=== PATIENT | female | born 1965 | race Caucasian/White ===

== ENCOUNTER 2019-05-31 16:21 | Inpatient (IN) | payer OTHER ==
[~2019-05-31] VITALS: Ht 149.8 cm; Wt 173.9 kg
--- NOTE | ~2019-05-31 | WRIGHTHP ---
[place], [place] PATIENT HISTORY AND PHYSICAL EXAM NAME: ISAK BERGER UNIT #: [id number] ROOM: 309 DOCTOR: KE DURAN MD BIRTHDATE: [birth year] DOS: 06/02/2019 CHIEF COMPLAINT: "I have just been so depressed and anxious." HISTORY OF PRESENT ILLNESS: This is a 53-year-old white female known to me from her stay at the [facility]. The patient presents now increasingly depressed and anxious. The patient has been calling 911 because her anxiety is so great and she is having chest pain and she feels that she needs to be taken care of. She also endorses significant depression with poor sleep and appetite, anergia, anhedonia, hopeless, helpless feelings, crying spells, and inability to cope. The patient has battled depression since her 20s and has had multiple psychiatric admissions during her lifetime. She is admitted now to rule out organic factors and to attempt to stabilize on medication while engaging in individual and mac milieu activities. PAST MEDICAL HISTORY: Remarkable for anemia, respiratory failure, COPD, chronic kidney disease stage 3, generalized anxiety disorder, GI bleed, lymphedema, major depression, morbid obesity, pulmonary fibrosis. SOCIAL HISTORY: The patient does not smoke cigarettes or drink alcohol. She has a questionable use of pain meds and benzos. ALLERGIES: LISTED TO NSAIDS AND SULFA. STRENGTHS: Ambulatory, good verbal skills. WEAKNESSES: Chronic severe mental health issues and poor coping skills. MENTAL STATUS: The patient is alert and oriented. Mood does seem to be overwhelmingly depressed with anxious overtones. She endorses significant symptoms suggestive of panic disorder. There is no jason or hypomania. There is no gross psychosis. No delusions, no paranoia. Memory is intact. DIAGNOSES: Major depression, recurrent, severe and anxiety disorder, not otherwise specified. PLAN: Routine screening examinations revealed her to have a low vitamin D level of 25.3. I will increase her vitamin D from 2000 international units daily to 5000 international units daily. I will also start her on a vitamin B12 injection of 1000 mcg monthly, increase her Klonopin to 1 mg t.i.d. and start her on Remeron 15 mg at bedtime while engaging in individual and mac milieu activity with the plan to return to the least restrictive environment when psychiatrically stable. [place], [place] PATIENT HISTORY AND PHYSICAL EXAM NAME: ISAK BERGER UNIT #: [id number] ROOM: 309 DOCTOR: KE DURAN MD BIRTHDATE: [birth year] KE DURAN MD CM:HISPHYS:PATIENT HISTORY AND PHYSICAL EXAMINATION 7 7 KE DURAN MD 06/02/19947 interface
--- NOTE | ~2019-05-31 | DS ---
[place], [place] DISCHARGE SUMMARY [id number] UN[facility] #: [id number] ROOM: 309 DOCTOR: KE DURAN MD BIRTHDATE: [birth year] DOS: 06/10/2019 CHIEF COMPLAINT: "I am so ready to go, thank you so much. At admission, I have just been so depressed and anxious." HISTORY OF PRESENT ILLNESS: This is a 53-year-old white female known to me from the [facility]. The patient presents now to the [facility] at [facility] with increasing depression and anxiety. The patient has been repeatedly calling 911 because her anxiety is so great and she is having chest pains and feels she needs to be taken to the Emergency Room. She is fearful of and has a sense of impending doom. She also endorses significant depressive symptoms that include poor sleep with difficulty falling asleep, sleep continuity disturbance, elementary secretary awakening. She also notes fluctuations in her appetite level, anergia, anhedonia, hopeless, helpless feelings, crying spells, and inability to cope. The patient reports having battled depression since her early 20s and has had multiple psychiatric admissions during her lifetime. She is admitted now to rule out any organic factors to attempt to re-stabilize on medication, to engage in individual and mac milieu activities and then to determine the least restrictive environment to which she could be returned. SUMMARY OF THE HOSPITAL COURSE: The patient was admitted to the [facility] where routine screening examinations were performed, one of which was a vitamin D level that was low at 25.3. Her vitamin D dosing was increased from 2000 international units daily to 5000 international units daily. The patient's B12 level was low normal, so a vitamin B12 injection of 1000 mcg monthly was started. The patient's Klonopin was increased upon admission to 1 mg t.i.d. and subsequently toward the latter part of her stay to 1 mg q.i.d. with excellent results. The patient had her antidepressants switched to Remeron 15 mg at bedtime, which dramatically improved sleep and appetite. With these changes in medication and with mac activities that focused on positive coping skills, the patient improved greatly. Sleep and appetite normalized. She was able to assist in ADLs. She voiced positive plans for the future and was looking to return back to the [facility]. She convincingly denied suicidal thoughts, homicidal thoughts and self-injurious thoughts and also convincingly denied medication side effects. The patient was discharged then back to the [facility]. MENTAL STATUS AT DISCHARGE: She is alert and oriented to person, place, and time. Mood is much more euthymic and bright. She is smiling readily. She is spontaneous and is able to answer questions appropriately. There were no symptoms of depression noted, no neurovegetative symptoms were present. There are also no suicidal thoughts, homicidal thoughts, or self-injurious thoughts. No hypomania or jason. No gross psychotic symptoms. No auditory or visual hallucinations were noted. No paranoia. Memory for the most part was intact. FINAL DIAGNOSES: Major depression, recurrent, severe; anxiety disorder, not otherwise specified and personality disorder, not otherwise specified. DISPOSITION: The patient is returning to the [facility]. All of her [place], [place] DISCHARGE SUMMARY NAME: SIAK BERGER UNIT #: [id number] ROOM: 309 DOCTOR: KE DURAN MD BIRTHDATE: [birth year] prescriptions have been printed and will be sent with her. At the time of discharge, she was medically and psychiatrically stable. I will be the treating psychiatrist of record upon her readmission to the [facility]. KE DURAN MD CM:DISCHARG [id number] KE DURAN MD 06/10/19 1826 interface
--- NOTE | ~2019-05-31 | PR ---
[place], [place] PROGRESS NOTE NAME: ISAK BERGER UNIT #: [id number] ROOM: 309 DOCTOR: KE DURAN MD BIRTHDATE: [birth year] DOS: 06/08/2019 INTERVAL NOTE CHIEF COMPLAINT: "I am feeling a little better, but my anxiety is still there." SUMMARY OF THE VISIT: The patient was interviewed as she was resting quietly in bed, eating her breakfast. She reported to me that she had a good weekend and overall was feeling better than when she was first admitted. She does note that her depression has lessened. Sleep and appetite have normalized. She still is fixated on her anxiety level being present throughout the day and that the anxiety comes and goes at will without necessarily having a precipitating factor. She convincingly denies medication side effects and no sedation, somnolence are noted. MENTAL STATUS: She is alert and oriented with some time gaps. Mood does seem to be trending solidly towards euthymia. Affect is much more appropriate. There are still symptoms suggestive of overriding anxiety. There is no jason or hypomania and there are no gross psychotic symptoms. PLAN: I will maintain her current dose of the Remeron. I will increase her Klonopin from 1 mg t.i.d. to 1 mg q.i.d. as I attempt to eradicate the remainder of her anxiety. We will continue to engage her in individual and mac milieu activity, returning to the least restrictive environment when psychiatrically stable. KE DURAN MD CM:PNTRANS [id number] KE DURAN MD 06/09/19 0540 interface
--- NOTE | ~2019-05-31 | PR ---
[place], [place] PROGRESS NOTE NAME: ISAK BERGER UNIT #: [id number] ROOM: 309 DOCTOR: TROY COLEMAN CNP BIRTHDATE: [birth year] DOS: 06/06/2019 CHIEF COMPLAINT: "They took my cell phone." SUMMARY OF THE VISIT: The patient was interviewed as she sat eating her breakfast in the dining room. The patient engaged readily in conversation with me. The patient reports that the staff will not took her cell phone and will not allow her to have it. I explained that these are the rules for the unit; however, she will receive her cell phone upon discharge. The patient was happy with that. The patient reports that she did sleep well last night and that her appetite has been good. She denies any anxiety or depression. Staff reports that the patient has been compliant with medication taking it as directed. She does continue to be demanding at times and has to be encouraged to get out of bed and to participate in activities. MENTAL STATUS EXAMINATION: The patient is alert and oriented to person, place and time. She was pleasant and cooperative with me. No overt jason or hypomania noted. No delusions or paranoia noted. No psychotic symptoms noted. No auditory or visual hallucinations noted. The patient's mood was calm. No depression or anxiety. Affect is congruent with mood. PLAN: I will continue the patient's medication as prescribed. She appears to be tolerating medications without side effects. The patient's gabapentin level is still pending. Encourage the patient to engage in mac milieu activity. Continue fall and safety precautions. Plan is to return the patient to the least restrictive environment when she is considered psychiatrically stable. Troy Coleman CNP CM:PNTRANS [id number] TROY COLEMAN CNP 06/06/19 1637 interface
--- NOTE | ~2019-05-31 | PR ---
[place], [place] PROGRESS NOTE NAME: ISAK BERGER UNIT #: [id number] ROOM: 309 DOCTOR: KE DURAN MD BIRTHDATE: [birth year] DOS: 06/03/2019 INTERVAL NOTE CHIEF COMPLAINT: "I think I'm feeling a little better, thank you for asking." SUMMARY OF THE VISIT: The patient was interviewed as she was sitting in the dining room finishing her breakfast. She engaged readily in conversation and reports that she is sleeping better, eating better, and overall is beginning to feel much better with the current medication regimen. She convincingly denies any side effects and does not note any sedation, somnolence, or any other side effects. She is willing to allow me to adjust her medication regimen accordingly. MENTAL STATUS: She is alert and oriented to person, place and time. Mood does still seem to be somewhat depressed, but improving. Affect shows some anxious overtones, but otherwise is appropriate for content. There is no jason, hypomania or gross psychotic symptomatology. Short, intermediate, and long-term memory are intact. PLAN: I will go ahead and increase her Remeron dose from 15 mg at bedtime to 22.5 mg at bedtime, hoping to maximize potential benefits. We will continue to engage in individual and mac milieu activity, returning to the least restrictive environment when psychiatrically stable. KE DURAN MD CM:PNTRANS [id number] KE DURAN MD 06/03/19 0936 interface
--- NOTE | ~2019-05-31 | PR ---
[place], [place] PROGRESS NOTE NAME: ISAK BERGER UNIT #: [id number] ROOM: 309 DOCTOR: TROY COLEMAN CNP BIRTHDATE: [birth year] DOS: 06/07/2019 CHIEF COMPLAINT: "I am doing well." SUMMARY OF VISIT: The patient was interviewed as she sat in the dining room. The patient engaged readily in conversation with me. She reports that she has been sleeping well. She reports that her appetite has been good. She reports that her mood has been happy. She denies feeling anxious or agitated. Staff reports that the patient has been compliant with medications. She slept 7-8 hours last night. She has been pleasant for the most part; however, can continue to be demanding at times. MENTAL STATUS EXAMINATION: The patient is alert and oriented to person, place and time. She was pleasant and cooperative with me. No jason or hypomania noted. No delusions or paranoia noted. No psychotic symptoms noted. No auditory or visual hallucinations noted. Mood was calm, trending toward euthymia. Affect was appropriate. PLAN: I will continue the patient's medications as prescribed as she appears to be tolerating them well without any type of side effect. Medication appears to be effective. We will continue to encourage the patient to engage in individual and mac milieu activity. Continue fall and safety precautions. Plan is to return the patient to the least restrictive environment when she is considered psychiatrically stable. Troy Coleman CNP CM:PNTRANS [id number] TROY COLEMAN CNP 06/07/19 1335 interface
--- NOTE | ~2019-05-31 | PR ---
[place], [place] PROGRESS NOTE NAME: ISAK BERGER UNIT #: [id number] ROOM: 309 DOCTOR: KE DURAN MD BIRTHDATE: [birth year] DOS: 06/04/2019 CHIEF COMPLAINT: "I feel a little better, but I'm still down." SUMMARY OF HOSPITAL COURSE: The patient was interviewed in the dining area. She was engaging in conversation with a female peer, but stopped and engaged in conversation with me. She reports that overall she feels that she is improving day by day. Her sleep is good. Her appetite is good. She still complains of pain issues. She still has some anxiety issues, but feels that the Klonopin is beginning to take hold. MENTAL STATUS: She is alert and oriented with some time gaps. Mood does seem to be strongly trending towards euthymia. Affect is much more appropriate. There is no hypomania or jason. There are no gross psychotic symptoms. Short, intermediate and long-term memories for the most part are intact. PLAN: I will continue her current psychotropic regimen. I will go ahead and check a Neurontin level in the a.m. I will continue to engage in individual and mac milieu activity, returning to the least restrictive environment when psychiatrically stable. KE DURAN MD CM:PNTRANS [id number] KE DURAN MD 06/05/19 0012 interface
--- NOTE | ~2019-05-31 | PR ---
[place], [place] PROGRESS NOTE NAME: ISAK BERGER UNIT #: [id number] ROOM: 309 DOCTOR: KE DURAN MD BIRTHDATE: [birth year] DOS: 06/05/2019 INTERVAL NOTE CHIEF COMPLAINT: "I think I am feeling better, thank you." SUMMARY OF THE VISIT: The patient was interviewed as she was finishing her breakfast in the dining room. She stopped and engaged readily in conversation, reporting improved sleep, improved appetite and also stating that she does feel better since she came in. She convincingly denies any medication side effects and none are noted. MENTAL STATUS: She is alert and oriented to person, place, not totally to time, but very approximate. Mood is strongly trending towards euthymia. Affect is much more appropriate. There is no hypomania, jason or psychosis. Short-term memory, intermediate memory and long-term memory for the most part are intact. PLAN: Gabapentin level is pending. I will adjust accordingly. Otherwise, I will maintain her current psychotropic regimen, continue to engage in individual and mac milieu activity, returning to the least restrictive environment when psychiatrically stable. KE DURAN MD CM:PNTRANS [id number] KE DURAN MD 06/05/19 1341 interface
[2019-05-31] MEDS ORDERED: BREO ELLIPTA 11 EACH INH (16:36)
[2019-05-31] MEDS ORDERED: VITAMIN D31000 UNI1 PO (16:36)
[2019-05-31] MEDS ORDERED: FERROUS SULFAT325 MG PO (16:37)
[2019-05-31] MEDS ORDERED: FLUVOXAMINE100 MG PO ×2 (16:38→16:39)
[2019-05-31] MEDS ORDERED: FLUVOXAMINE50 MG PO (16:39)
[2019-05-31] MEDS ORDERED: KLONOPIN1 M1 PO (16:40)
[2019-05-31] MEDS ORDERED: CLARITIN10 MG PO (16:41)
[2019-05-31] MEDS ORDERED: OXYBUTYNIN ER15 MG PO (16:42)
[2019-05-31] MEDS ORDERED: TESSALON PERLE100 MG PO (16:43)
[2019-05-31] MEDS ORDERED: KLONOPIN0.5 MG PO (16:44)
[2019-05-31] MEDS ORDERED: LOPRESSOR25 MG PO (16:45)
[2019-05-31] MEDS ORDERED: TYLENOL325 M1 PO (16:46)
[2019-05-31] MEDS ORDERED: NEURONTIN100 MG PO (16:46)
[2019-05-31] MEDS ORDERED: HYDROXYZINE HCL50 MG PO (16:47)
[2019-05-31] MEDS ORDERED: VENTOLIN 02.5 MG/3 M INH (16:48)
[2019-05-31] MEDS ORDERED: DICYCLOMINE HCL20 MG PO (16:48)
[2019-05-31] MEDS ORDERED: ROBITUSSIN5 ML PO (16:49)
[2019-05-31] MEDS ORDERED: MELATONIN5 M1 PO (16:50)
[2019-05-31] MEDS ORDERED: IMODIUM A-D2 M2 PO (16:50)
[2019-05-31] MEDS ORDERED: ZOFRAN4 MG PO (16:53)
[2019-05-31] MEDS ORDERED: TUMS200 MG PO (16:53)
--- NOTE | 2019-06-01 17:17 | NUR ---
NOTIFIED OF CONSULT FOR MEDICAL MANAGEMENT.
--- NOTE | 2019-06-01 17:25 | NUR ---
ON UNIT TO SEE PT AT THIS TIME.
--- NOTE | 2019-06-01 17:34 | NUR ---
DR MARTINEZ ON UNIT TO ASSESS PT
[2019-06-01 17:55] LABS: BASO % 0.5 % (0.0-1.0); EOS # 0.3 10*3/uL (0.0-0.4); EOS % 4.3 % (1.0-4.0); HEMATOCRIT 39.9 % (37.0-47.0); LYMPH # 1.1 10*3/uL (1.3-4.4); LYMPH % 18.8 % (27.0-41.0); MEAN CELL VOLUME 88.1 fl (81.0-99.0); MEAN CORPUSCULAR HGB 28.7 pg (27.0-31.0); MEAN CORPUSCULAR HGB CONC 32.6 g/dl (33.0-37.0); MEAN PLATELET VOLUME 9.2 fl (9.6-12.3); MONO # 0.3 10*3/uL (0.1-1.0); MONO % 5.5 % (3.0-9.0); NEUT # 4.2 10*3/uL (2.3-7.9); NEUT % 70.6 % (47.0-73.0); PLATELET COUNT AUTOMATED 153 10*3/uL (130-400); RED BLOOD COUNT 4.53 10*6/uL (4.10-5.10); RED CELL DISTRI WIDTH 13.7 % (0-14.5)
[2019-06-01 18:24] LABS: ALBUMIN 3.2 gm/dl (3.1-4.5); ALKALINE PHOSPHATASE 151 U/L (45-117); BUN 13 mg/dl (7-24); CHLORIDE 103 mmol/L (98-107); CREATININE 0.95 mg/dL (0.55-1.02); POTASSIUM 4.2 mmol/L (3.5-5.1); SGOT/AST 18 IU/L (3-35); SGPT/ALT 18 U/L (12-78); SODIUM 141 mmol/L (136-145); TOTAL PROTEIN 7.4 gm/dL (6.4-8.2)
[2019-06-01 18:41] VITALS: BP 121/45
[2019-06-01 18:45] LABS: VITAMIN D, 25-HYDROXY 25.3 ng/mL (30-100)
--- NOTE | 2019-06-01 19:44 | NUR ---
ISAK BERGER a 53 year old F admitted via wheel chair from the ADMITTING as a voluntary admission. Arrived on unit at 1615. ALLERGIES: SULFA, ASA. Vital signs are: 97.3-68-20 . The client signed the following forms with stated understanding: Authorization For The Release of Medical Information, Clothing List, Consent to Voluntary Admission and Hospitalization, Consent and Release Forms/Receipt of Rights, Acknowledgement of Advance Directive Information, Behavioral Health Consent Form, and Informed Consent of Medications. Admitted under the services of Dr. ROGER SEALSKE. A search was conducted and hazardous articles were removed. Client was oriented to the unit. RAFAEL WILSON
--- NOTE | 2019-06-01 19:46 | NUR ---
PT COOPERATIVE WITH ADMISSION ASSESSMENT. 7 WOUNDS NOTED WITH MULTIPLE BRUISING. A&O X4. STABLE MOOD. PT STATES SHE HAS BEEN DEPRESSED RECENTLY AND HAS INCREASED ANXIETY. CALM. INTERACTIVE. COOPERATIVE. BP 121/45. DR CHANG UPDATED ON BP AND STATED HE WOULD BE AROUND TO TALK TO THE PT. PT STATED THE REASONS SHE WAS SENT TO THE [facility] WAS CORRECT. ADMITTED TO CALLING THE POLICE AND THROWING HER FOOD TRAYS. PT STATED THE [facility] WAS NOT TAKING HER TO THE BATHROOM WHEN SHE NEEDED TO GO WHICH IS THE REASON SHE URINATED ON THE FLOOR. SHIFT DIRECTOR ON UNIT TO ASSESS THE WOUND. DIRECTOR STATED IT WAS A STAGE 2.
[2019-06-01 20:00] VITALS: BP 127/50
--- NOTE | 2019-06-01 20:11 | NUR ---
ON UNIT, UPDATED ON PATIENTS RECENT BP OF 127/50 AUTOMATIC, PT ASYMPTOMATIC. ALSO UPDATED ON PATIENTS WOUNDS, LABS, AND PMH. RECIEVED ORDER FOR NYSTATIN POWER FOR ABDOMINAL FOLDS Q8H PRN. STATED IF PATIENT IS WILLING TO RECHECK BP IN A COUPLE HOURS AND TO ENCOURAGE FLUID INTAKE. NO OTHER ORDERS RECIEVED.
--- NOTE | 2019-06-01 20:42 | NUR ---
EVENING/AROMATHERAPY/RELAXTION SKILLS PT UNABLE TO ATTEND, PT STILL BECOMING ORIENTED TO UNIT. PT ASSESSMENT WILL BE COMPLETED TOMORROW AND PT WILL BE ENCOURAGED OT ATTEND AND PARTICIPATE IN FUTURE GROUP SESSIONS.
[2019-06-01 23:17] VITALS: BP 110/62
--- NOTE | 2019-06-01 23:17 | NUR ---
UPDATED ON PATIENTS RECENT BP OF 110/62 MANUAL AND THAT THIS NURSE DID NOT YET GIVE HS DOSE OF LOPRESSOR 25MG DUE TO LOW BP, PT ASYMPTOMATIC. STATED IT WAS OKAY TO HOLD MEDICATION AT THIS TIME. NO OTHER ORDERS RECIEVED.
--- NOTE | 2019-06-02 01:07 | NUR ---
NO ADVERSE BEHAVIORS NOTED SO FAR THIS SHIFT. PT ALERT AND ORIENTED X4, MOOD STABLE. PT CALM, COOPERATIVE, AND INTERACTIVE. MEDICATION COMPLIANT WITHOUT DIFFICULTY, ACTIVELY PARTICIPATED IN MEDICATION EDUCATION.PT DENIES SI/HI AND HALLUCINATIONS, NO NOTED RESPONDING TO INTERNAL STIMULI. NO PARANOIA/DELUSIONS OBSERVED. NO PHYSICAL COMPLAINTS VOICED. PT INCONTINENT OF BOWEL AND BLADDER, X3 ASSIST WITH CARE. PT NONAMBULATORY, Q2H TURNS MAINTAINED. PT CURRENTLY LAYING DOWN WITH EYES CLOSED, RESPIRATIONS EASY AND REGULAR, NO SIGNS OR SYMPTOMS OF DISTRESS NOTED. PLAN IS TO CONTINUE TO MONITOR MOOD AND BEHAVIORS. PROVIDE 1:1 WITH EMOTIONAL SUPPORT NEEDED. ENCOURAGE MEDICATION COMPLIANCE AND EDUCATE. MAINTAIN Q 15 MIN CHECKS.
--- NOTE | 2019-06-02 04:10 | NUR ---
ISAK BERGER [id number] Please refer to the physician's history and physical for past medical history, comorbid conditions, and allergies. Diagnosis: MAJOR DEPRESSION RECURRENT SEVERE Gordo Score: 11,HIGH RISK WOUND DESCRIPTIONS: Wound Number: 1 Location of the wound: left upper back Type of wound: fungal Thickness: Partial Size: 0.4cm x 6.5cm x 0.1cm Tunneling: none Undermining: none Sinus Tract: none Presence of Exudate: Serosanguineous Amount: Light Color: Red Odor: Musty Periwound Skin Appearance: Normal Wound edges: approximated Pain (associated with wound): none at time of assessment How does patient state this happened? pt unsure how she got these areas Wound Number: 2 Location of the wound: left middle back- medial Type of wound: fungal Thickness: Partial Size: 2.0cm x 2.9cm x 0.1cm Tunneling: none Undermining: none Sinus Tract: none Presence of Exudate: none Amount: none Color: Red Odor: Musty Periwound Skin Appearance: Normal Wound edges: approximated Pain (associated with wound): none at time of assessment How does patient state this happened? pt unsure how she got these areas Wound Number: 3 Location of the wound: left middle back- lateral Type of wound: fungal Thickness: Partial Size: 0.1cm x 0.7cm x 0.1cm Tunneling: none Undermining: none Sinus Tract: none Presence of Exudate: none Amount: none Color: Red Odor: Musty Periwound Skin Appearance: Normal Wound edges: approximated Pain (associated with wound): none at time of assessment How does patient state this happened? pt unsure how she got these areas Wound Number: 4 Location of the wound: coccyx Type of wound: stage 2 Thickness: Partial Size: 4.5cm x 0.4cm x 0.1cm Tunneling: none Undermining: none Sinus Tract: none Presence of Exudate: Serosanguineous Amount: Light Color: Red Odor: None Periwound Skin Appearance: Normal Wound edges: approximated Pain (associated with wound): none at time of assessment How does patient state this happened? pt unsure how she got these areas Wound Number: 5 Location of the wound: right hip fold Type of wound: fungal Thickness: Partial Size: 0.5cm x 1.7cm x 0.1cm Tunneling: none Undermining: none Sinus Tract: none Presence of Exudate: none Amount: none Color: Red Odor: Musty Periwound Skin Appearance: Normal Wound edges: approximated Pain (associated with wound): none at time of assessment How does patient state this happened? pt unsure how she got these areas Wound Number: 6 Location of the wound: right middle back fold Type of wound: fungal Thickness: Partial Size: 2.2cm x 0.5cm x 0.1cm Tunneling: none Undermining: none Sinus Tract: none Presence of Exudate: none Amount: none Color: Red Odor: Musty Periwound Skin Appearance: Normal Wound edges: approximated Pain (associated with wound): none at time of assessment How does patient state this happened? pt unsure how she got these areas Wound Number: 7 Location of the wound: left breast fold Type of wound: fungal Thickness: Partial Size: 0.4cm x 1.0cm x 0.1cm Tunneling: none Undermining: none Sinus Tract: none Presence of Exudate: none Amount: none Color: Red Odor: Musty Periwound Skin Appearance: Normal Wound edges: approximated Pain (associated with wound): none at time of assessment How does patient state this happened? pt unsure how she got these areas Patient has bruises noted to the right and left buttocks in various stages of healing color are purple and yellow at time of assessment. Underside of right forearm eccymotic area noted due to heart cath which was done on 05/27/19. Surface the patient is resting on: Proform SKIN PREVENTION RECOMMENDATION: 1. Pressure redistribution support surface as appropriate 2. Elevate heels 3. Remove boots/TEDS every shift and reapply 4. Head of bed 30 degrees as tolerated 5. Assess nutrition and hydration 6. Manage moisture 7. Avoid the use of containment devices while in bed 8. Use absorptive products on surfaces limit layers of linens on bed 9. Turn and reposition every 1-2 hours in bed and every 1 hour in chair as tolerated 10. Weight shifts every 15 minutes while up in chair 11. Offloading with pillows or device to keep heels elevated off bed 12. Monitor skin at least every shift 13. Inspect under medical devices twice a day WOUND TREATMENT RECOMMENDATIONS: Cleanse left upper back, left middle back medial, left middle back lateral, coccyx, right hip fold, right middle back fold, left breast fold with soap and water and apply nystatin powder every 8 hours. D/C stage 2 guidelines Cleanse coccyx with soap and water and apply calazime every shift and prn for soiling. Wheelchair cushion when oob. Heel raiser pro boots in bed to bilateral feet.
--- NOTE | 2019-06-02 04:14 | NUR ---
PATIENT RECIEVED PRN TYLENOL 650MG AT THIS TIME REQUESTED FOR C/O A HEADACHE WITH A RATING OF 9/10. NO OTHER PHYSICAL COMPLAINTS NOTED.
--- NOTE | 2019-06-02 06:25 | NUR ---
PATIENT OBSERVED ON Q 15 MIN CHECKS TO HAVE SLEPT APPROX 5 HOURS WITH BRIEF AWAKENINGS NOTED DURING Q2H TURNS. NO COMPLAINTS OF PAIN, PRN TYLENOL 650MG GIVEN AT 0406 EFFECTIVE AT THIS TIME.
--- NOTE | 2019-06-02 06:38 | NUR ---
24 HOUR CHART CHECK COMPLETED.
--- NOTE | 2019-06-02 07:26 | NUR ---
PHYSICAL THERAPY Nursing screen received. PT orders also received. Thank you. Jailyn Toscano,PT
[2019-06-02 07:32] LABS: CHOLESTEROL 142 mg/dL (<200); HDL CHOLESTEROL 47 mg/dl (40-60); LDL CHOLESTEROL 71 mg/dL (9-159); TRIGLYCERIDES 119 mg/dl (<150); VLDL CHOLESTEROL 24 mg/dL (6-40)
[2019-06-02 07:47] VITALS: BP 139/70
[2019-06-02 08:46] LABS: BILIRUBIN NEGATIVE (NEGATIVE); BLOOD 3+ (NEGATIVE); CLARITY CLEAR (CLEAR); COLOR YELLOW (YELLOW); GLUCOSE NEGATIVE (NEGATIVE); KETONE NEGATIVE (NEGATIVE); LEUKO ESTERASE NEGATIVE (NEGATIVE); NITRITE NEGATIVE (NEGATIVE); UROBILINOGEN 0.2 E.U./dl (0.2-1.0)
[2019-06-02 09:08] LABS: BACTERIA TRACE; RBC TNTC rbc/hpf (0-2)
--- NOTE | 2019-06-02 10:11 | NUR ---
Dr. Fitzgerald notified of wound care recommendations.
--- NOTE | 2019-06-02 11:31 | NUR ---
AM GROUP PT ATTENDED AND PARTICIPATED IN GROUP BY COLORING AND READING THE PAPER. PT EXHIBITED NO AGITATION OR AGGRESSIVE BEHAVIORS DURING GROUP. PT WAS PLEASANT AND TALKATIVE.
--- NOTE | 2019-06-02 11:35 | NUR ---
Treatment Plan meeting with Dr. Maxwell, RN, AT, and Business Asst. Plan for discharge next week. Saturday-Saturday. Pt. is current resident of [facility].
--- NOTE | 2019-06-02 11:40 | NUR ---
pt c/o discomfort in wheelchair. pt skin to right hip/thigh assessed for erythema, skin slightly pink and blanchable. attempted to pad area with blanket, spoke with director d/t pt requesting to spend day in bed, and take meals in there. director states it is okay for patient to consume meals in bed d/t patient's condition, continue with frequent turning schedule per policy. will continue to monitor pt's skin for impairment, will davis pt to bariatric wheelchair to participate in mac milieu as able, will perform PROM as necessary. continue q15 min monitoring and falilng star program for pt safety.
--- NOTE | 2019-06-02 11:49 | NUR ---
Pt is discharging today to home. Follow-up was scheduled with [facility] for psychiatric and with [facility] for EMDR therapy. While at [facility], pt's mood improved and anxiety lessened. Pt denies suicidal ideations. Pt is future-oriented with a written plan of daily goals. She is voicing that she is motivated to feel better and continue to make self-improvements.
--- NOTE | 2019-06-02 12:44 | NUR ---
Nursing screen received and Occupational Therapy referral received. Thank you. Essence Noyola OTR/L
--- NOTE | 2019-06-02 12:54 | NUR ---
Faxed admission clinical to [facility]. Awaiting response.
--- NOTE | 2019-06-02 14:18 | NUR ---
Occupational Therapy referral received and screen completed. Nursing reports that [facility] and patient was admitted with a bariatric w/c that was putting too much pressure on patient's hips, therefore patient is in bed. Patient feeds self with set up per nursing. Patient could benefit from a larger w/c to enable her to be up out of bed. At this time no further OT indicated. Discharge OT referral. Essence Noyola OTR/l
--- NOTE | 2019-06-02 14:51 | NUR ---
PHYSICAL THERAPY Patient is chronic davis lift and non ambulatory. No PT skills/needs. Recommend daily ROM with daily nursing care, prn. Thank you for this referral. Jailyn Toscano,PT
--- NOTE | 2019-06-02 17:00 | NUR ---
NURSING TIMBER FRAMER BROUGHT PATIENT A BARIATRIC CHAIR FROM 4TH FLOOR. CHAIR IS 26" WIDE AND PT STATES THAT IT IS MUCH MORE COMFORTABLE. CHAIR CUSHION IN PLACE, FOOT RESTS PLACED FOR PT COMFORT.
--- NOTE | 2019-06-02 17:17 | NUR ---
PT SARCASTIC T/O SHIFT. PT STATING SHE WANTS HER MEALS IN BED, HER SODA IN BED. PT STATES "I DON'T KNOW WHY I CANT JUST STAY IN HERE LIKE I DO AT THE [facility]". PT EDUCATED ON IMPORTANCE OF PARTICIPATING IN [place], INTERACTING WITH PEERS AND STAFF, AND PARTICIPATING IN TREATMENT PLAN. PT STATED "OH, FK". PT REDIRECTED FROM VULGAR SPEECH. STATES "OK". PT DID GET UP FOR SUPPER WITHOUT MUCH RESISTANCE. PT NOW SITTING IN DAY ROOM WITH PEERS WATCHING MOVIE, LAUGHING. WILL CONTINUE TO REDIRECT PT FROM SARCASTIC COMMENTS, WILL CONTINUE TO ENCOURAGE PT TO ENGAGE IN [place], WILL ENCOURAGE PARTICIPATION IN GROUP THERAPY.
--- NOTE | 2019-06-02 17:25 | NUR ---
Shift chart check completed.
--- NOTE | 2019-06-02 19:53 | NUR ---
24 HOUR CHART CHECK COMPLETED
--- NOTE | 2019-06-02 20:09 | NUR ---
CALLED , UPDATED ON PATIENTS RECENT MANUAL BP OF 112/60, PULSE 68. DR. CHANG STATED TO HOLD HS DOSE OF LOPRESSOR 25MG. NO OTHER ORDERS RECIEVED.
[2019-06-02 20:10] VITALS: BP 112/60
--- NOTE | 2019-06-03 00:28 | NUR ---
NO ADVERSE BEHAVIORS NOTED SO FAR THIS SHIFT. PT ALERT AND ORIENTED X4, MOOD STABLE, ANXIOUS AT TIMES. PT CALM, COOPERATIVE, AND INTERACTIVE WITH STAFF AND PEERS. MEDICATION COMPLIANT WITHOUT DIFFICULTY, ACTIVELY PARTICIPATED IN MEDICATION EDUCATION.PT DENIES SI/HI AND HALLUCINATIONS, NO NOTED RESPONDING TO INTERNAL STIMULI. NO PARANOIA/DELUSIONS OBSERVED. NO PHYSICAL COMPLAINTS VOICED. PT INCONTINENT OF BOWEL AND BLADDER, X3 ASSIST WITH CARE. PT NONAMBULATORY, Q2H TURNS MAINTAINED. PT CURRENTLY LAYING DOWN WITH EYES CLOSED, RESPIRATIONS EASY AND REGULAR, NO SIGNS OR SYMPTOMS OF DISTRESS NOTED. PLAN IS TO CONTINUE TO MONITOR MOOD AND BEHAVIORS. PROVIDE 1:1 WITH EMOTIONAL SUPPORT NEEDED. ENCOURAGE MEDICATION COMPLIANCE AND EDUCATE. MAINTAIN Q 15 MIN CHECKS.
--- NOTE | 2019-06-03 04:49 | NUR ---
Upon discharge recommend patient to follow up for wound care in outpatient setting continue current wound care orders at discharging facility.
--- NOTE | 2019-06-03 06:09 | NUR ---
PATIENT OBSERVED ON Q 15 CHECKS TO HAVE SLEPT 7 HOURS WITH BRIEF AWAKENINGS DURING Q2H TURNS. NO SIGNS OR SYMPTOMS OF DISTRESS NOTED.
[2019-06-03 07:53] VITALS: BP 117/61
--- NOTE | 2019-06-03 08:00 | NUR ---
Treatment Plan meeting with Dr. Maxwell, RN, AT, SW and Braille Coder. Plan for discharge early next week. Pt. will return to [facility].
--- NOTE | 2019-06-03 09:27 | NUR ---
ROBE DUONGNP ON UNIT TO ASSESS PT UPDATE PROVIDED.
--- NOTE | 2019-06-03 09:36 | NUR ---
PATIENT COMPLAINING OF A HEADACHE, PRN TYLENOL 650MG GIVEN PO FOR PAIN.
--- NOTE | 2019-06-03 10:17 | NUR ---
PATIENT IS ALERT AND ORIENT TO PERSON, PLACE, TIME AND SITUATION; ABLE TO VOICE NEEDS. MOOD IS STABLE. DENIES ANY HALLUCINATIONS, DELUSIONS, HI/SI OR PAIN. 2-3 ASSIST WITH ACTIVITIES OF DAILY LIVING, INCONTINENT OF BOWEL AND BLADDER; SET UP FOR MEALS, INTAKES ARE GOOD WITH ADEQUATE FLUIDS. TRANSFERS VIA MECHANICAL LIFT WITH ASSIST OF 2. MEDICATION COMPLAINT WITH EDUCATION PROIVDED. Q 15 MINUTE SAFETY CHECKS MAINTAINED. UP IN IZABELA CHAIR FOR COMFORT. INTERACTIVE WITH STAFF AND PARTICIPATING IN GROUP SESSIONS. CONTINUE TO MONITOR FOR ANXIETY OR ANY OUTBURST. PROVIDE ONE ON ONE AND REDIRECTION NEEDED.
--- NOTE | 2019-06-03 11:36 | NUR ---
AM GROUP PT ATTENDED AND PARTICIPATED IN GROUP BY COLORING AND LISTENING TO MUSIC. PT WAS TALKATIVE AND ON TASK. PT EXHIBITED NO SIGNS OF ANXIETY DURING GROUP
--- NOTE | 2019-06-03 14:30 | NUR ---
Pt was pleasant during interaction with this jingle writer in the late AM. Pt voiced no delusions. She was appropriate in conversation. Also, observed pt interacting appropriately with another female pt.
--- NOTE | 2019-06-03 15:00 | NUR ---
GONZALEZ CATHETER 18FR WITH 10CC BALLLOON IN PLACE, DRAINING STRAW YELLOW URINE. PATIENT TOLERATED WELL. 500CC OF URINE NOTED AFTER CATH IN PLACE.
[2019-06-03 20:57] VITALS: BP 132/62
--- NOTE | 2019-06-03 22:45 | NUR ---
Patient alert and oriented x 4. Patient denies any SI/HI at this time. Patient interactive with staff and other patients. No signs of any hallucinations/delusions noted at this time. Patient compliant with medications without any difficulty. Provided 1:1 with patient for emotional support. Plan to continue to encourage participation in group and interacting with staff and patients. Also continue to encourage medication compliance and provide 1:1 for emotional support. Hoffman catheter remains intact and draining straw colored urine. Q 15 minute safety checks continued and maintained. See [facility] flowsheet for further documentation.
--- NOTE | 2019-06-04 03:37 | NUR ---
24 HR chart check completed.
--- NOTE | 2019-06-04 05:10 | NUR ---
Patient slept approx. 6 hours throughout shift with 1 awakening. Q 15 minute safety checks continued and maintained.
[2019-06-04 08:00] VITALS: BP 127/50
--- NOTE | 2019-06-04 09:30 | NUR ---
DR. SLAUGHTER ON UNIT AT THIS TIME TO ASSESS PT.
--- NOTE | 2019-06-04 10:47 | NUR ---
PT IS ALERT, ORIENTED X4, PLEASANT, COOPERATIVE WITH ASSESSMENT. PT IS ASSESSED FOR MOOD AND AFFECT, HALLUCINATIONS, DELUSIONS, THOUGHT PROCESS, FALL RISK. PT STATES SHE FEELS GOOD TODAY, MOOD APPEARS STABLE, AFFECT APPROPRIATE. PT DENIES HALLUCINATIONS AND DELUSIONS. NO OVERT S/S OF ATTENDING TO INTERNAL STIMULI NOTED. PT INTERACTING APPROPRIATELY WITH PEERS, THOUGHTS ARE ORGANIZED, VERBAL RESPONSES APPROPRIATE TO CONTENT. PT MEDICATION COMPLIANT WITHOUT DIFFICULTY. PT SCORES A FALL RISK, FALLING STAR PROGRAM MAINTAINED FOR SAFETY. WILL CONTINUE TO ASSESS PT'S MOOD, AFFECT, AND THOUGHT PROCESS. WILL CONTINUE TO ENCOURAGE MEDICATION COMPLIANCE. WILL MAINTAIN FALLING STAR PROGRAM PER POLICY AND Q 15 MIN MONITORING PER POLICY FOR SAFETY.
--- NOTE | 2019-06-04 18:08 | NUR ---
Shift chart check completed.
[2019-06-04 19:54] VITALS: BP 128/57
--- NOTE | 2019-06-04 21:06 | NUR ---
Patient alert and oriented x 4. Patient denies any SI/HI at this time. Patient interactive with staff and other patients. No signs of any memory deficits. No signs of any hallucinations/delusions noted at this time. Patient compliant with medications without any difficulty. Provided 1:1 with patient for emotional support. Plan to continue to encourage participation in group and interacting with staff and patients. Also continue to encourage medication compliance and provide 1:1 for emotional support. Hoffman catheter remains intact and draining straw colored urine. Q 15 minute safety checks continued and maintained. See [facility] flowsheet for further documentation.
--- NOTE | 2019-06-05 00:10 | NUR ---
24 HR chart check completed.
--- NOTE | 2019-06-05 05:35 | NUR ---
Patient slept approx. 8 hours throughout shift. Q 15 minute safety checks continued and maintained.
[2019-06-05 07:48] VITALS: BP 126/58
--- NOTE | 2019-06-05 07:54 | NUR ---
IP 7 days nataly per Yesica at [facility], NRD 06/08, auth # [id number]
--- NOTE | 2019-06-05 08:15 | NUR ---
Treatment Plan meeting with Dr. Maxwell, RN, AT, SW and Harp Maker. Plan for discharge next week. Pt. will return to the [facility].
--- NOTE | 2019-06-05 11:18 | NUR ---
Pt was pleasant during conversation with this medical writer this AM. No delusions or hallucinations were noted. Pt was not displaying any inappropriate behaviors.
--- NOTE | 2019-06-05 11:21 | NUR ---
Call Placed to [facility]. Nixon notified of discharge Plans for next week. Clinical updates faxed to [facility].
--- NOTE | 2019-06-05 11:39 | NUR ---
AM GROUP PT DID NOT ATTEND MORNING GROUP THERAPY. PT WAS IN BED RESTING.
--- NOTE | 2019-06-05 11:44 | NUR ---
DR. SLAUGHTER ON UNIT TO ASSESS PATIENT.
--- NOTE | 2019-06-05 13:07 | NUR ---
NOTIFIED OF WOUND ON COCCOYX FOR TREATMENT CHANGE.
--- NOTE | 2019-06-05 15:29 | NUR ---
PM GROUP PT DID NOT ATTEND AFTERNOON GROUP THERAPY. PT WAS IN BED NAPPING
--- NOTE | 2019-06-05 15:35 | NUR ---
PATIENT IS ALERT AND ORIENT TO PERSON, PLACE, TIME AND SITUATION; ABLE TO VOICE NEEDS. MOOD IS SLIGHTLY DEPRESSED PER PATIENT DURING INTERACTIONS WITH NURSE. DENIES ANY HALLUCINATIONS, DELUSIONS, HI/SI. PRN TYLENOL GIVEN FOR ALL OVER BODY ACHE AND EFFECTIVE. NO RESPONSE TO INTERNAL STIMULI. Q 15 MINUTE SAFETY CHECKS MAINTAINED. MEDICAITON COMPAINT WITH EDUCATION PROVIDED. INTERACTIVE WITH STAFF; DID NOT PARTICIAPTE IN GROUP SESSION. 2 PERSON ASSIST WITH ACTIVITIES OF DAILY LIVING, GONZALEZ CATHETER IN PLACE AND DRAINING STRAW YELLOW. TRANSFERS VIA MECHANICAL LIFT, 2 ASSIST. SET UP FOR MEALS, INTAKES ARE GOOD WITH ADEQUATE FLUIDS. CONTINUE TO MONITOR MOOD; PROVIDE ONE ON ONE AND REDIRECTION NEEDED.
--- NOTE | 2019-06-05 15:53 | NUR ---
Met with pt in her room and assisted her in making a phone call to her bank to check on a deposit. Pt spoke of her discharge and stated that she would be interested in learning more about NFs in the [place] area. Pt confirmed that she understands that she will need to return to the [facility]. Informed pt that a list of NFs will be provided to her.
[2019-06-05 19:58] VITALS: BP 112/60
--- NOTE | 2019-06-05 21:51 | NUR ---
Patient alert and oriented x 4. Patient denies any SI/HI at this time. Patient interactive with staff and other patients. No signs of any hallucinations/delusions noted at this time. Patient compliant with medications without any difficulty. Provided 1:1 with patient for emotional support. Plan to continue to encourage participation in group and interacting with staff and patients. Also continue to encourage medication compliance and provide 1:1 for emotional support. Hoffman catheter remains intact and draining straw colored urine. Q 15 minute safety checks continued and maintained. See [facility] flowsheet for further documentation.
--- NOTE | 2019-06-06 00:10 | NUR ---
24 HR chart check completed.
--- NOTE | 2019-06-06 05:28 | NUR ---
Patient slept approx. 7 hours throughout shift with 1 awakening. Q 15 minute safety checks continued and maintained.
--- NOTE | 2019-06-06 07:30 | NUR ---
PT WAS IN A GERIATRIC GERICHAIR AND ATTEMPTED TO SLIDE OUT. PT WAS THEN HOYERED INTO A GERIATRIC WHEELCHAIR.
[2019-06-06 08:00] VITALS: BP 108/67
--- NOTE | 2019-06-06 08:00 | NUR ---
CARLOS SIMMONS ON UNIT TO ASSESS PT.
--- NOTE | 2019-06-06 08:53 | NUR ---
PT REQUESTED PRN TYLENOL FOR 7/10 BACK PAIN. TYLENOL GIVEN AT THIS TIME.
--- NOTE | 2019-06-06 08:54 | NUR ---
LOPRESSOR HELD DUE TO DECREASED BP. DR SLAUGHTER UPDATED.
--- NOTE | 2019-06-06 10:17 | NUR ---
ON UNIT TO ASSESS PT, UPDATE PROVIDED.
--- NOTE | 2019-06-06 11:51 | NUR ---
P: PREOCCUPIED WITH LYING IN BED. PT CONTINUES TO ASK TO GO TO BED. PT WILL GIVE SOMATIC COMPLAINTS WHEN ATTEMPTING TO REDIRECT. I: OFFER ACTIVITIES FOR PT TO COMPLETE. PROVIDE 1:1 FOR THERAPEUTIC COMMUNICATION, ENCOURAGE MEDICATION COMPLIANCE, REDIRECT WHEN NEEDED. MONITOR BEHAVIORS WITH Q15 MINUTE SAFETY CHECKS. R: PT CONTINUED WITH SOMATIC COMPLAINTS. ABLE TO REDIRECT FOR SHORT PERIODS OF TIME. PT REFUSED ACTIVITIES. MEDICATION COMPLIANT. P: CONTINUE TO REDIRECT WHEN NEEDED AND MONITOR BEHAVIORS WITH Q15 MINUTE SAFETY CHECKS. CONTINUE TO ENCOURAGE MEDICATION COMPLIANCE AND PROVIDE 1:1 FOR THERAPEUTIC COMMUNICATION. WOUND CARE COMPLETED. SKIN INTACT. NO DRAINAGE NOTED. SUNDAR CARE COMPLETED. GONZALEZ CATH INTACT AND DRAINING STRAW COLORED URINE WITHOUT DIFFICULTY. PT NAPPED FOR 1.5 HOURS PRIOR TO LUNCH. SEE [facility] FLOWSHEET FOR SPECIFIC MONITORING. PRN TYLENOL EFFECTIVE. PT RESTED QUIETLY AND COMFORTABLY.
--- NOTE | 2019-06-06 15:05 | NUR ---
PT REMOVED CLOTH FROM TREATMENT TO FOLDS. STAFF ATTEMPTED TO PROVDE EDUCATION RE: TX AND SEE STATED "I DON'T CARE". PT REFUSED TO ALLOW STAFF TO REAPPLY.
[2019-06-06 18:43] VITALS: BP 123/61
--- NOTE | 2019-06-06 21:35 | NUR ---
24 HR chart check completed.
--- NOTE | 2019-06-06 23:52 | NUR ---
PATIENT REMAINS ALERT AND ORIENTED X4. INTERACTIVE AND PLEASANT WITH STAFF. NO SI/HI AT THIS TIME. HAS BEEN COMPLIANT WITH MEDS AND TREATMENTS. VOICES UNDERSTANDING OF REASON FOR TREATMENT TO FOLDS. GONZALEZ CATH REMAINS PATENT FOR STRAW COLORED URINE. EVERY 15 MINUTE SAFETY CHECKS CONTINUE. ENCOURAGED TO VOICE FEELINGS TO STAFF AND REMAIN MED COMPLIANT.
--- NOTE | 2019-06-07 05:17 | NUR ---
PATIENT SLEPT UNINTERRUPTED FOR 8 HOURS.
[2019-06-07 07:35] VITALS: BP 126/64
--- NOTE | 2019-06-07 10:28 | NUR ---
ON UNIT TO ASSESS PT, UPDATE PROVIDED.
--- NOTE | 2019-06-07 11:04 | NUR ---
DR. SLAUGHTER ON UNIT TO ASSESS PT, UPDATE PROVIDED.
--- NOTE | 2019-06-07 17:37 | NUR ---
P: PREOCCUPIED WITH LYING IN BED. I: OFFER ACTIVITIES FOR PT TO COMPLETE. PROVIDE 1:1 FOR THERAPEUTIC COMMUNICATION, ENCOURAGE MEDICATION COMPLIANCE, REDIRECT WHEN NEEDED. MONITOR BEHAVIORS WITH Q15 MINUTE SAFETY CHECKS. R: ALBE TO REDIRECT FOR SHORT PERIODS OF TIME. PT REFUSED ACTIVITIES. MEDICATION COMPLIANT. P: CONTINUE TO REDIRECT WHEN NEEDED AND MONITOR BEHAVIORS WITH Q15 MINUTE SAFETY CHECKS. CONTINUE TO ENCOURAGE MEDICATION COMPLIANCE AND PROVIDE 1:1 FOR THERAPEUTIC COMMUNICATION. WOUND CARE COMPLETED. SKIN INTACT. NO DRAINAGE NOTED. SUNDAR CARE COMPLETED. GONZALEZ CATH INTACT AND DRAINING STRAW COLORED URINE WITHOUT DIFFICULTY. PT NAPPED FOR APPROXIMATELY 2 HOURS PRIOR TO DINNER. SEE [facility] FLOWSHEET FOR SPECIFIC MONITORING. PT RESTED QUIETLY AND COMFORTABLY.
[2019-06-07 20:00] VITALS: BP 131/55
--- NOTE | 2019-06-07 21:32 | NUR ---
24 HR chart check completed.
--- NOTE | 2019-06-07 21:42 | NUR ---
P-PREOCCUPATION WITH STAYING IN BED I-ENCOURAGE VENTILATION OF FEELINGS. ENCOURAGE PARTICIPATION IN UNIT ACTIVITIES. ADMINISTER MEDICATIONS. MONITOR SLEEP, TURN Q 2 HOURS TO PROMOTE WOUND HEALING. MONITOR I & O, PRIVIDE CATH CARE NEEDED R-PT IS ALERT & ORIENTED X 4. MOOD IS PLEASANT. DENIES FEELING DEPRESSED. DID C/O HAVE SOME "INTERNAL AGITATION" BECAUSE SHE WOULD LIKE TO GO TO HER ROOM & LAY DOWN. PT WAS PRAISED FOR REMAINING IN THE DINING ROOM & WATCHING TV & SITTING UP. ATE SNACK & WAS ASSISTED TO BED AFTER MED PASS. WAS INCONTINENT OF A LARGE BM. COMPLIANT WITH MEDICATIONS. PT DID REFUSE LOPRESSOR THIS EVENING. PULSE WAS 64 & BP WAS 106/66. P-B CONTINUE TO MONITOR & PROVIDE PHYSICAL ASSISTANCE & EMOTIONAL SUPPORT.
--- NOTE | 2019-06-08 04:55 | NUR ---
PT HAS SLEPT FROM [id number]. RESTING QUIETLY IN BED.
[2019-06-08 07:45] VITALS: BP 134/64
--- NOTE | 2019-06-08 07:55 | NUR ---
PT AWAKE, ALERT. RESPS EASY AND EVEN ON ROOM AIR. BREAKFAST PROVIDED. ON UNIT TO SEE PT AT THIS TIME, UPDATE GIVEN.
--- NOTE | 2019-06-08 08:00 | NUR ---
Treatment Plan meeting with Dr. Maxwell, RN, AT, and Stained Glass Joiner. Plan for discharge Saturday. Pt. will return to [facility].
--- NOTE | 2019-06-08 09:15 | NUR ---
JERMAINE MOWER SHARPENER ON UNIT TO SEE PT AT THIS TIME, STATES OK TO CHANGE GONZALEZ BAG.
--- NOTE | 2019-06-08 09:18 | NUR ---
Spoke with Nixon at [facility]. Advised of plans to discharge patient on Saturday. [facility] does not have a facility Van and Cannot transport. Will Follow with Nixon throughout the week.
--- NOTE | 2019-06-08 11:10 | NUR ---
P- PT C/O FEELING ANXIOUS THROUGHOUT THE DAY LEADING TO DIFFICULTY SLEEPING. I- ORIENTATION, MOOD AND BEHAVIOR ASSESSED. ASSESSED PT FOR SI/HI, INTENT OR PLAN. ASSESSED PT FOR S/S HALLUCINATIONS, PARANOIA AND/OR DELUSIONS. MEDICATIONS ADMINISTERED PER PHYSICIAN'S ORDERS. ASSISTANCE WITH ADL CARE PROVIDED. FLORES LIFT FOR TRANSFERS. WOUND CARE COMPLETED. ENCOURAGED PT TO ATTEND AND PARTICIPATE IN [place] GROUPS AND ACTIVITIES. R- PT IS ALERT AND ORIENTED X4. MEMORY APPEARS TO BE INTACT. RESPS EASY AND EVEN ON ROOM AIR. MOOD APPEARS STABLE, PT DENIES FEELING SAD OR DEPRESSED. PT ENDORSES FEELINGS OF ANXIETY THROUGHOUT THE DAY. PT UNABLE TO IDENTIFY TRIGGER TO ANXIETY, PT STATES IT IS THERE CONSTANTLY, STATES KLONOPIN DOES HELP. PT STATES ANXIETY MAKES IT DIFFICULT TO SLEEP AT NIGHT AT TIMES. SPEECH IS WNL AND COHERENT, ABLE TO MAKE NEEDS KNOWN WITHOUT DIFFICULTY. PT DENIES SI/HI, INTENT OR PLAN. PT DENIES HALLUCINATIONS, NO RESPONSE TO INTERNAL STIMULI NOTED. PT IS MEDICATION COMPLIANT WITHOUT DIFFICULTY. COMPLIANT WITH HANDS ON CARE. NO AGGRESSIVE BEHAVIORS. GONZALEZ BAG CHANGED D/T BAG LEAKING. NO LEAKING NOTED AT INSERTION SITE. AWARE OF PT C/O ANXIETY, MEDICATION ADJUSTMENTS MADE. MED EDUCATION PROVIDED TO PT WITH PT'S STATED UNDERSTANDING AND AGREEMENT WITH PLAN. P- PLAN TO CONTINUE CURRENT TREATMENT, CONTINUE TO MONITOR MOOD AND BEHAVIORS, PROVIDE APPROPRIATE REORIENTATION, REDIRECTION AND 1:1 NEEDED. CONTINUE TO ENCOURAGE MEDICATION COMPLIANCE WELL GROUP ATTENDANCE AND PARTICIPATION.
--- NOTE | 2019-06-08 11:38 | NUR ---
AM GROUP NO AM GROUP THERAPY DUE TO NEW PATIENT ASSESSMENTS. PT WILL ATTEND AND PARTICIPATE IN AFTERNOON GROUP
--- NOTE | 2019-06-08 13:00 | NUR ---
Clinical Updates faxed to [facility].
[2019-06-08 13:07] LABS: NEURONTIN (GABAPENTIN) 2.3 ug/mL (4.0-16.0)
--- NOTE | 2019-06-08 13:33 | NUR ---
Met with pt in her room. Pt spoke again of wanting to move to a NF in the [place] area. Explained to pt that this food writer is gathering additional information to give to pt beyond the names of NFs. Pt voiced understanding. Pt also requested that this food writer assist her in making a call to a [employer] bookstore where there are books on hold for her there. The call was placed. Pt was appropriate in conversation with this food writer during this interaction.
--- NOTE | 2019-06-08 14:27 | NUR ---
JERMAINE PARTY PLAN DEALER AWARE PT REQUESTS STOOL SOFTENER.
--- NOTE | 2019-06-08 15:34 | NUR ---
PM GROUP/LEISURE INTERESTS PT ATTENDED GROUP AND PARTICIPATED BY COLORING AND LISTENING TO MUSIC. PT EXPRESSED NO ANXIETY DURING GROUP. PT WAS ON TASK AND TALKATIVE. PT WAS SURPRISED AT THE TIME STATING, "WOW, TIME REALLY GOES FAST WHEN YOU HAVE AN ACTIVITY TO DO!"
--- NOTE | 2019-06-08 18:35 | NUR ---
SHIFT CHART CHECK COMPLETED.
[2019-06-08 19:53] VITALS: BP 138/69
--- NOTE | 2019-06-09 00:11 | NUR ---
P-PREOCCUPATION WITH STAYING IN BED I-ENCOURAGE VENTILATION OF FEELINGS. ENCOURAGE PARTICIPATION IN UNIT ACTIVITIES. ADMINISTER MEDICATIONS. MONITOR SLEEP, TURN Q 2 HOURS TO PROMOTE WOUND HEALING. MONITOR I & O, PRIVIDE CATH CARE NEEDED R-PT IS ALERT & ORIENTED X 4. MOOD IS PLEASANT. WAS IN HER BED AT THE ONSET OF THE SHIFT. ATE SNACK IN HER ROOM. COMPLIANT WITH MEDICATIONS. P-B CONTINUE TO MONITOR & PROVIDE PHYSICAL ASSISTANCE & EMOTIONAL SUPPORT.
--- NOTE | 2019-06-09 01:02 | NUR ---
24 HR chart check completed.
--- NOTE | 2019-06-09 06:02 | NUR ---
PT HAS SLEPT PAST [id number]
[2019-06-09 07:23] VITALS: BP 136/68
--- NOTE | 2019-06-09 07:53 | NUR ---
PT AWAKE AND ALERT. VERBAL AND PLEASANT. RESPS EASY AND EVEN ON ROOM AIR. AWAITING BREAKFAST. ON UNIT TO SEE PT AT THIS TIME, UPDATE PROVIDED.
--- NOTE | 2019-06-09 08:00 | NUR ---
Treatment Plan meeting with Dr. Maxwell, RN, AT, and Mobile Heavy Equipment Mechanic. Plan for discharge Saturday. Pt. will return to [facility].
--- NOTE | 2019-06-09 08:20 | NUR ---
ASSISTED WOUND NURSE WITH ASSESSMENT OF WEEKLY WOUND AREAS, PATIENT AMITS TO SCRATCHING AREA TO LEFT THIGH/ABDOMEN FOLD BECAUSE SHE STATES "IT ITCHES".
--- NOTE | 2019-06-09 08:52 | NUR ---
ISAK BERGER [id number] Please refer to the physician's history and physical for past medical history, comorbid conditions, and allergies. Diagnosis: MAJOR DEPRESSION RECURRENT SEVERE Gordo Score: 10,HIGH RISK WOUND DESCRIPTIONS: Wound Number: 1 Location of the wound: left upper back Type of wound: fungal Thickness: Partial Size: 0.3cm x 1.7cm x 0.1cm Tunneling: none Undermining: none Sinus Tract: none Presence of Exudate: Serosanguineous Amount: Light Color: Red Odor: Musty Periwound Skin Appearance: Normal Wound edges: approximated Pain (associated with wound): none at time of assessment How does patient state this happened? pt unsure how she got these areas Wound Number: 2 Location of the wound: left middle back- medial Type of wound: fungal Thickness: Partial Size: 0.1cm x 1.0cm x 0.1cm Tunneling: none Undermining: none Sinus Tract: none Presence of Exudate: none Amount: none Color: Red Odor: Musty Periwound Skin Appearance: Normal Wound edges: approximated Pain (associated with wound): none at time of assessment How does patient state this happened? pt unsure how she got these areas Wound Number: 3 Location of the wound: left middle back- lateral Type of wound: fungal Thickness: Partial Size: 0.1cm x 0.7cm x 0.1cm Tunneling: none Undermining: none Sinus Tract: none Presence of Exudate: none Amount: none Color: Red Odor: Musty Periwound Skin Appearance: Normal Wound edges: approximated Pain (associated with wound): none at time of assessment How does patient state this happened? pt unsure how she got these areas Wound Number: 4 Location of the wound: coccyx Type of wound: stage 2 Thickness: Partial Size: 2.2cm x 0.4cm x 0.1cm Tunneling: none Undermining: none Sinus Tract: none Presence of Exudate: Serosanguineous Amount: Light Color: Red Odor: None Periwound Skin Appearance: Normal Wound edges: approximated Pain (associated with wound): none at time of assessment How does patient state this happened? pt unsure how she got these areas Wound Number: 5 Location of the wound: right hip fold Type of wound: fungal Thickness: Full Size: 0.8cm x 8.4cm x 0.1cm Tunneling: none Undermining: none Sinus Tract: none Presence of Exudate: none Amount: none Color: Red Odor: Musty Periwound Skin Appearance: Normal Wound edges: approximated Pain (associated with wound): none at time of assessment How does patient state this happened? pt stated she had a history of mrsa and keeps picking at this area. Wound Number: 6 Location of the wound: right middle back fold Type of wound: fungal Thickness: Partial Size: 0.1cm x 1.1cm x 0.1cm Tunneling: none Undermining: none Sinus Tract: none Presence of Exudate: none Amount: none Color: Red Odor: Musty Periwound Skin Appearance: Normal Wound edges: approximated Pain (associated with wound): none at time of assessment How does patient state this happened? pt unsure how she got these areas Wound Number: 7 Area is pink and blanchable at time of assessment. No open areas noted at time of assessment. No drainage noted at time of assessment. Surface the patient is resting on: Proform SKIN PREVENTION RECOMMENDATION: 1. Pressure redistribution support surface as appropriate 2. Elevate heels 3. Remove boots/TEDS every shift and reapply 4. Head of bed 30 degrees as tolerated 5. Assess nutrition and hydration 6. Manage moisture 7. Avoid the use of containment devices while in bed 8. Use absorptive products on surfaces limit layers of linens on bed 9. Turn and reposition every 1-2 hours in bed and every 1 hour in chair as tolerated 10. Weight shifts every 15 minutes while up in chair 11. Offloading with pillows or device to keep heels elevated off bed 12. Monitor skin at least every shift 13. Inspect under medical devices twice a day WOUND TREATMENT RECOMMENDATIONS: D/C nystatin powder to left breast and right hip but continue in all previous areas. Full thickness guidleines: Cleanse right hip fold with nss and apply sureprep around the wound therahoney to wound bed and cover with optifoam gentle.
--- NOTE | 2019-06-09 10:26 | NUR ---
P- STABLE MOOD. PT STATES SHE IS FEELING BETTER AND IS READ[facility]. I- ORIENTATION, MOOD AND BEHAVIOR ASSESSED. ASSESSED PT FOR SI/HI, INTENT OR PLAN. ASSESSED PT FOR S/S HALLUCINATIONS, PARANOIA AND/OR DELUSIONS. MEDICATIONS ADMINISTERED PER PHYSICIAN'S ORDERS. ASSISTANCE WITH ADL CARE PROVIDED NEEDED. FLORES LIFT FOR TRANSFERS. ENCOURAGED PT TO ATTEND AND PARTICIPATE IN [facility] GROUPS AND ACTIVITIES. R- PT IS ALERT AND ORIENTED X4. MEMORY APPEARS TO BE INTACT. RESPS EASY AND EVEN ON ROOM AIR. MOOD IS STABLE, AFFECT IS BROAD RANGE AND APPROPRIATE. SPEECH IS WNL AND COHERENT, ABLE TO MAKE NEEDS KNOWN WITHOUT DIFFICULTY. PT DENIES SI/HI, INTENT OR PLAN. PT DENIES HALLUCINATIONS, NO RESPONSE TO INTERNAL STIMULI NOTED. NO PARANOIA OR DELUSIONS NOTED. PT IS CALM AND COOPERATIVE. MEDICATION COMPLIANT WITHOUT DIFFICULTY. NO DISTRESS NOTED. P- PLAN TO CONTINUE CURRENT TREATMENT, CONTINUE TO MONITOR MOOD AND BEHAVIORS, PROVIDE APPROPRIATE REORIENTATION, REDIRECTION AND 1:1 NEEDED. CONTINUE TO ENCOURAGE MEDICATION COMPLIANCE WELL GROUP ATTENDANCE AND PARTICIPATION.
--- NOTE | 2019-06-09 11:21 | NUR ---
JERMAINE ACCOUNT GROUP SUPERVISOR ON UNIT TO SEE PT AT THIS TIME, ASSESSED AREA TO RIGHT HIP FOLD. STATES TO APPLY THERAHONEY AND BOARDERED FOAM DRESSING. STATES TO OBTAIN URINE SPECIMEN VIA [facility] CATH. ORDERS CARRIED OUT GIVEN.
[2019-06-09 11:38] LABS: BILIRUBIN NEGATIVE (NEGATIVE); BLOOD 3+ (NEGATIVE); CLARITY CLOUDY (CLEAR); COLOR YELLOW (YELLOW); GLUCOSE NEGATIVE (NEGATIVE); KETONE NEGATIVE (NEGATIVE); LEUKO ESTERASE 3+ (NEGATIVE); NITRITE POSITIVE (NEGATIVE); PH 7.5 (5.0-9.0)
--- NOTE | 2019-06-09 11:39 | NUR ---
AM GROUP THERAPY PT DID NOT ATTEND MORNING GROUP THERAPY. PT WAS IN BED RESTING. PT WILL ATTEND AND PARTICIPATE IN AFTERNOON GROUP
[2019-06-09 11:48] LABS: BACTERIA 3+
--- NOTE | 2019-06-09 14:56 | NUR ---
Spoke with pt about her discharge. Pt concerned about transportation. Reassurance provided. Pt was pleasant and smiling during interaction.
--- NOTE | 2019-06-09 15:33 | NUR ---
PM GROUP/MANICURES AND MUSIC PT ATTENDED GROUP AND HAD HER NAILS DONE. PT WAS VERY SOCIABLE AND TALKED WITH PEERS. PT EXHIBITED NO SIGNS OF ANXIETY DURING GROUP.
--- NOTE | 2019-06-09 15:57 | NUR ---
JERMAINE BACK OFFICE MEDICAL ASSISTANT UPDATED WITH URINALYSIS RESULT. MADE AWARE OF PT ALLERGY TO SULFA ATB.
[2019-06-09] MEDS ORDERED: KEFLEX 500 MG E2 CAP PO (16:03)
--- NOTE | 2019-06-09 17:25 | NUR ---
SHIFT CHART CHECK COMPLETED.
--- NOTE | 2019-06-09 19:43 | NUR ---
24 HR chart check completed.
[2019-06-09 19:58] VITALS: BP 141/72
--- NOTE | 2019-06-09 22:49 | NUR ---
P-NO PROBLEMS VOICED. PT IS STABLE. I-ENCOURAGE VENTILATION OF FEELINGS. ENCOURAGE PARTICIPATION IN UNIT ACTIVITIES. ADMINISTER MEDICATIONS. MONITOR SLEEP, TURN Q 2 HOURS TO PROMOTE WOUND HEALING. MONITOR I & O, PRIVIDE CATH CARE NEEDED R-PT IS ALERT & ORIENTED X 4. MOOD IS PLEASANT. WAS IN HER BED AT THE ONSET OF THE SHIFT. ATE SNACK IN HER ROOM. COMPLIANT WITH MEDICATIONS. P-B CONTINUE TO MONITOR & PROVIDE PHYSICAL ASSISTANCE & EMOTIONAL SUPPORT.
--- NOTE | 2019-06-10 05:20 | NUR ---
PT HAS SLEPT FROM [id number]
[2019-06-10] MEDS ORDERED: ATARAX,VISTARIL50 MG PO (07:43)
[2019-06-10] MEDS ORDERED: MIRTAZAPINE45 MG PO (07:43)
[2019-06-10] MEDS ORDERED: CLONAZEPAM1 MG PO (07:43)
[2019-06-10 07:52] VITALS: BP 128/52; BP 139/62
--- NOTE | 2019-06-10 08:00 | NUR ---
Treatment Plan meeting with Dr. Maxwell, RN, AT, and [employer]inder. Plan for discharge today. Pt. will return to [facility].
--- NOTE | 2019-06-10 08:37 | NUR ---
Pt is discharging today to [facility]. Follow-up will be with visiting psychiatrist, Dr Wm Maxwell. While at [facility], pt's mood improved and anxiety decreased. Pt did not display inappropriate behaviors. Pt was pleasant and cooperative with staff and pleasant with her peers.
--- NOTE | 2019-06-10 08:41 | NUR ---
Spoke with Nixon Retail Cashier at [facility]. Notified of discharge with return to facility today. Discharge Paperwork Faxed to [facility]. Spoke with Nurse Pauline and notified her that patient will discharge with Indwelling Urethral Catheter due to wounds on Perineum and Buttocks. Pauline states that patient can return to Facility with Catheter and they will follow at facility. Edel Temple is aware that facility was notified.
--- NOTE | 2019-06-10 08:45 | NUR ---
JERMAINE SUPERVISING FLOORPERSON ON UNIT TO SEE PT AT THIS TIME. STATES TO LEAVE GONZALEZ IN PLACE FOR DISCHARGE.
--- NOTE | 2019-06-10 09:00 | NUR ---
PT IS ALERT AND ORIENTED X4. MEMORY INTACT. RESPS EASY AND EVEN ON ROOM AIR. MOOD APPERS STABLE WITH APPROPRIATE AFFECT. SPEECH IS WNL AND COHERENT, ABLE TO MAKE NEEDS KNOWN WITHOUT DIFFICULTY. NO ANXIETY NOTED AT THIS TIME. PT IS LOOKING FORWARD TO BEING DISCHARGED FROM THE HOSPITAL TODAY. PT DENIES SI/HI, INTENT OR PLAN. PT DENIES HALLUCINATIONS, NO RESPONSE TO INTERNAL STIMULI NOTED. NO PARANOIA OR DELUSIONS NOTED. PT IS CALM AND COOPERATIVE. RELIANT ON STAFF FOR ASSISTANCE WITH ADL CARE. FLORES LIFT FOR TRANSFERS. PT IS MEDICATION COMPLIANT WITHOUT DIFFICULTY. EXPRESSES UNDERSTANDING OF MEDICATIONS AND THEIR INTENDED USES. NO DISTRESS NOTED. GONZALEZ CATH REMAINS IN PLACE AND PATENT. Q15 MIN MONITORING CONTINUES PER POLICY. PLAN TO ASSIST PT IN PREPARING FOR HOSPITAL DISCHARGE THIS DATE.
--- NOTE | 2019-06-10 09:12 | NUR ---
DISCHARGE INSTRUCTIONS REVIEWED WITH PT, PT VERBALIZED UNDERSTANDING OF ALL. PT UP IN CHAIR IN DINING ROOM AWAITING RIDE AT THIS TIME. TRANSPORTATION COULD ARRIVE ANYTIME BETWEEN NOW AND 1030AM. PT REFUSED WOUND DISCHARGE PHOTOS, STATED "I'D HAVE TO LAY DOWN FOR THAT AND I DON'T WANT TO MISS MY RIDE".
--- NOTE | 2019-06-10 09:24 | NUR ---
NURSE TO NURSE REPORT GIVEN TO TRACY AT [facility].
--- NOTE | 2019-06-10 09:28 | NUR ---
VERIFIED WITH JERMAINE BUTTS PT IS FINISHED WITH COURSE OF PREDNISONE FOR BACK PAIN AND SCRIPT FOR KEFLEX IS APPROPRIATE WITH PRELIMINARY URINE CULTURE SHOWING >100,00 HEAVY GNB.
--- NOTE | 2019-06-10 10:45 | NUR ---
PT STATES "I HAD A BM AND NEED MY WOUNDS DONE NOW SINCE THEY'RE LATE". PT ASSISTED TO BED AT THIS TIME VIA FLORES LIFT WITH STAFF ASSIST X4. WOUND PHOTOS TAKEN AT THIS TIME. WOUND CARE COMPLETED ORDERED. PT RETURNED TO CHAIR VIA FLORES LIFT AND AWAITING TRANSPORTATION FOR DISCHARGE AT THIS TIME. [facility] AWARE TRANSPORTATION HAS NOT YET ARRIVED.
--- NOTE | 2019-06-10 11:30 | NUR ---
Spoke with Arabella at [facility]. Pt. is to be picked up within 3 hour window from time call was placed. Provided with [facility] call back number.
--- NOTE | 2019-06-10 11:48 | NUR ---
AM GROUP/MUSIC AND GAMES PT ATTENDED GROUP AND PARTICIPATED BY COLORING. PT IS AWAITING TRANSPORTATION AND WILL BE DISCHARGED FROM THE UNIT TODAY.
--- NOTE | 2019-06-10 15:42 | NUR ---
[facility] unable to transport. Pt. will be transported this evening by [facility] with supervisor cd area time 5:30.
--- NOTE | 2019-06-10 16:26 | NUR ---
PT GIVEN PRN TYLENOL 650MG PO AT THIS TIME PER PT REQUEST FOR C/O HEADACHE NOT RATED ON PAIN SCALE. WILL MONITOR FOR EFFECTIVENESS OF MEDICATION.
--- NOTE | 2019-06-10 18:38 | NUR ---
PT DISCHARGED AT THIS TIME TO [facility] VIA [facility]. 3 CIVIL DRAFTING TECHNICIAN PRESENT. ALL PERSONAL BELONGINGS WERE SENT WITH THE PT INCLUDING LOCK BOX ITEMS (WHITE CELL PHONE SCRIPT COORDINATOR AND CELL PHONE IN PURPLE CASE). PT LEFT THE UNIT IN STABLE CONDITION AT 1838.
== END 2019-06-10 18:38 | DRG 885 ==
LOC: 3N 16:21
PROVIDERS: Registered Nurse; ADMIT Psychiatry & Neurology Psychiatry
DX: F33.2 Major depressive disorder, recurrent severe without psychotic features (principal); J96.10 Chronic respiratory failure, unspecified whether with hypoxia or hypercapnia; N30.00 Acute cystitis without hematuria; Z68.45 Body mass index [BMI] 70 or greater, adult; F41.1 Generalized anxiety disorder; N18.3 Chronic kidney disease, stage 3 (moderate); F60.9 Personality disorder, unspecified; E66.01 Morbid (severe) obesity due to excess calories; K59.00 Constipation, unspecified; J84.10 Pulmonary fibrosis, unspecified; J44.9 Chronic obstructive pulmonary disease, unspecified; I89.0 Lymphedema, not elsewhere classified; Z88.6 Allergy status to analgesic agent; Z88.2 Allergy status to sulfonamides; Z80.41 Family history of malignant neoplasm of ovary